=== PATIENT | female | born 1965 | race Caucasian/White ===

== ENCOUNTER 2024-07-10 08:06 | Day surgery (SDC) | payer BC, SELFPAY ==
[2024-07-10] VITALS (20 sets, daily range): BP systolic 95–128; BP diastolic 47–76; PULSE 52–73; RESP 11–18; TEMP 35.9–36.6; O2SAT 81–97; BMI 34.4
--- NOTE | 2024-07-10 07:32 | W.PM.DSUDISC ---
Date of service: 07/10/24 Time of Service: 11:22 Discharge Plan Disposition Patient Disposition: Home Condition: Good Discharge Details Reason For Visit: Left fifth metacarpal fracture Attending Provider: Luis Crawford Primary Care Provider: Luli Jenkins Home Meds and New Rx's Prescriptions: New acetaminophen 500 mg tablet 500 mg PO Q6H PRN (Reason: pain) Qty: 60 2RF hydrocodone-acetaminophen 5-325 mg tablet 1 tab PO Q6H PRN (Reason: severe pain) Qty: 5 0RF Rx Instructions: Take one tablet up to every 6 hours as needed for severe postoperative pain ibuprofen 600 mg tablet 600 mg PO TID PRN (Reason: pain) Qty: 60 0RF Continued levothyroxine [Synthroid] 125 mcg tablet 125 mcg PO DAILY rosuvastatin 10 mg tablet 10 mg PO DAILY multivitamin Tablet 1 tab PO DAILY Discontinued ibuprofen [IBU] 800 mg tablet 800 mg PO ONCE Discharge Instructions Additional Instructions: Finger Fracture Fixation Discharge Instructions Activity: You should keep the hand/wrist elevated as much as possible for the first few days. You may use the other fingers as tolerated but avoid trying to do too much too soon. You may perform light activities with the splint in place. Dressing/Cast: Your splint should stay in place at all times. Do NOT get it wet. You may loosen the IZABEL wrap if you feel it is too tight and then rewrap more loosely. Medications: - You should take Tylenol and Ibuprofen for baseline pain control. - You have been prescribed a stronger pain medication, Hydrocodone, for breakthrough pain. - You may apply ice over the wrist, just double bag so it doesn't get wet. Follow-up: 10-14 days Referrals: Luis Crawford MD [ [facility] STAFF PHYSICIAN] - Equipment/Supplies: Splint Activity:: Elevate Remove Dressings/Wound Care:: Do Not Remove Shower/Bathe:: Cover Diet:: As Tolerated Discharge Orders Discharge Orders: Discharge Order (Routine); Ordered 07/10/24 Ordered By: Kristin Brown
--- NOTE | 2024-07-10 07:48 | ANES.PREOP_ITS ---
General Info Date of Service Date Performed: 07/10/24 Height: 5 ft 4 in Weight: 91.172 kg Body Mass Index (BMI): 34.4 Surgical Procedure: Operation Date: 07/10/24 11:10 Proposed Procedure Side Surgeon p Closed reduction/perc pinning Left 5th metacarpal Left Luis Crawford MD Meds Allergies and Home Medications Allergies Allergy/AdvReac Type Severity Reaction Status Date / Time Penicillins Allergy Mild RASH Verified 07/10/24 09:29 Home Medication ?Medication ?Instructions ?Recorded levothyroxine 125 mcg tablet 125 mcg PO DAILY 07/05/24 (Synthroid) rosuvastatin 10 mg tablet 10 mg PO DAILY 07/05/24 multivitamin 1 tab PO DAILY 07/09/24 ibuprofen 800 mg tablet (IBU) 800 mg PO ONCE 07/10/24 Current Visit Medications: Current Medications Generic Name Dose Route Start Last Admin Trade Name Freq PRN Reason Stop Dose Admin Acetaminophen 1,000 mg 07/10/24 06:00 Acetaminophen 500 Mg Tab PO 07/10/24 23:59 PREOP ABBE Acetaminophen 650 mg 07/10/24 07:32 Acetaminophen 325 Mg Tab PO 08/09/24 07:31 Q4H PRN PRN Hydrocodone Bitart/Acetaminophen 0 tab 07/10/24 07:32 Hydrocodone 5/Acetaminophen 325 Tab PO 08/09/24 07:31 Q3H PRN PRN Pain Celecoxib 400 mg 07/10/24 06:00 Celecoxib 200 Mg Cap PO 07/10/24 23:59 PREOP ABBE Ringer's Solution 1,000 mls @ 80 mls/hr 07/10/24 06:00 IV 07/10/24 23:59 [facility] Cefazolin Sodium/Dextrose 2 gm in 50 mls @ 100 mls/hr 07/10/24 06:00 Ancef Duplex IVPB 07/10/24 23:59 PREOP [facility] IV Miscellaneous Supplies 1 each 07/10/24 06:00 Iv Access IV 07/10/24 23:59 DIRECTED ABBE Sodium Chloride 0 ml 07/10/24 06:00 Normal Saline Flush 10 Ml Syr IV 07/10/24 23:59 PRN PRN Sodium Chloride 0 ml 07/10/24 06:00 Normal Saline 10 Ml Vial IJ 07/10/24 23:59 DIRECTED PRN Sterile Water 0 ml 07/10/24 06:00 Water,Injection,Sterile 10 Ml Vial IJ 07/10/24 23:59 DIRECTED PRN PFSH Active Problems Active Problems: Problem Status Onset Code Fracture of fifth metacarpal bone of left hand Acute 07/03/24 S62.307A Medical History Medical History Hx of breast cancer (R) 10 years ago History of high cholesterol History of hypothyroidism Surgical History Surgical History Hx of parathyroidectomy Hx of cholecystectomy H/O partial thyroidectomy Hx of hysterectomy partial-still have ovaries Tobacco Smoking/Tobacco Use Status: Never Alcohol Alcohol Intake: current Alcohol intake frequency: a few times a week Alcohol type: beer and wine Substance Use Substance use: Rarely Substance use type: marijuana Vital Signs and Lab Results Lab Results Blood Type / Crossmatch: No Data to Display Complete Blood Count: No Data to Display Complete Metabolic Panel: No Data to Display Liver Function Panel: 2 No Data to Display Coagulation Panel: No Data to Display Cardiac Panel: No Data to Display Arterial Blood Gas: No Data to Display Venous Blood Gas: No Data to Display Pancreas Panel: No Data to Display Thyroid Panel: No Data to Display Infectious Disease: No Data to Display Blood Cultures: No Data to Display Toxicology Panel: No Data to Display Anesthesia Assessment and Plan Anesthesia History Personal History: No History of Anesthesia Complications Family History: No Family History of Anesthesia Complications Exercise Tolerance Exercise Tolerance: Metabolic Equivalents>4 Pertinent Negatives Pertinent Negatives: No Symptoms of GERD, No Major Cardiovascular Symptoms or Complaints, No Major Pulmonary Symptoms or Complaints and No History of CVA/TIA Cardiac & Pulmonary Exam Cardiac Exam: Normal S1/S2 Heart Sounds Pulmonary Exam: Clear Bilateral Breath Sounds Implantable Cardiac Device Does patient have a Pacemaker or an ICD?: No Airway Exam Known Difficult Airway: No Mallampati Class: 3 Mouth Opening: Normal (> 3cm) Thyromental Distance: Greater than 3 cm Neck Range of Motion: Full ROM Neck Circumference: Normal Teeth Condition: Normal Dentition (prominent incisors) ASA Classification ASA Score: ASA 2 Emergency Case?: No NPO Status NPO Status: NPO Clears >2 hours, Solids >8 hours Anesthesia Plan Resuscitation Status: Full Code Anesthesia Technique: General Anesthesia Airway Planned: Natural Airway Monitors Used: Standard Monitors Preoperative Comments:: 58 yo female for fracture of fifth met left hand Sig PMHx: hypothyroid (on replacement), breast CA, never smoker, occ EtOH.
[2024-07-10] MEDS: Acetaminophen 500 MG TAB 1000 MG PO (09:51)
[2024-07-10] MEDS: Celecoxib 200 MG CAP 400 MG PO (09:51)
[2024-07-10] MEDS: ceFAZolin 2 GM/50 ML BAG IVPB (10:47)
[2024-07-10] MEDS: Bupivacaine 0.5% Pres-Free 30 ML VIAL (11:00)
--- NOTE | 2024-07-10 11:56 | DI.RAD_ITS ---
Exam(s) XR HAND LT LIMITED EXAM: XR HAND LT LIMITED CLINICAL HISTORY: Fracture of fifth metacarpal bone of left hand TECHNIQUE: 2D and realtime digital imaging was performed. CONTRAST MATERIAL: Refer to procedure report. COMPARISON: CT CT UPPER EXTREMITY LT WO from 07/10/2024 FINDINGS: Fluoroscopy was provided for Dr. Crawford during the performance of a reduction and fixation of the 5th metatarsal fracture. Please refer to the procedure report for complete details. Ka,r=2.76 mGy IMPRESSION: RADIATION DOSE DELIVERED: 0.0 0.0 0
[2024-07-10] MEDS: Normal Saline 10 ML VIAL IJ (11:57)
[2024-07-10] MEDS: fentaNYL 100 MCG/2 ML VIAL IVP (11:57)
[2024-07-10] MEDS: HYDROcodone 5/Acetaminophen 325 TAB PO (12:43)
--- NOTE | 2024-07-10 13:00 | W.ANESPOSTOP ---
Postoperative Evaluation Date, Time and Location Date Performed: 07/10/24 Time Performed: 13:01 Patient Location: Day Surgery Unit Vital Signs Most Recent Imported Vital Signs: Most Recent Vital Signs Temp Pulse Resp BP Pulse Ox 36.1 C L 54 L 16 100/56 L 94 07/10/24 12:49 07/10/24 12:49 07/10/24 12:49 07/10/24 12:49 07/10/24 12:49 Pain Score Most Recent Pain Score: Most Recent Pain Score Pain Level 6 07/10/24 12:49 Assessment Mental Status: Awake (Alert & Oriented to Patient Baseline) Airway and Respiratory Function: Patent airway with normal (patient baseline) respiratory exam Cardiovascular Function: Hemodynamically Stable Hydration Status: Adequately Hydrated Nausea & Vomiting: No Nausea or Vomiting Pain: Pain is Moderate or Severe Postoperative Pain Management: Pain being addressed with medication Peripheral Nerve Block: Patient did not receive a nerve block
--- NOTE | 2024-07-10 17:13 | ROE_ITS ---
Date of service: 07/10/24 Time of Service: 11:15 Operative Note Operative Note DATE OF PROCEDURE: 07/10/24 PRE-OP DIAGNOSIS: Fifth carpometacarpal fracture dislocation, left hand POST-OP DIAGNOSIS: same PROCEDURE: Close reduction and percutaneous pinning of fifth carpometacarpal fracture dislocation, left hand SURGEON: Luis Crawford ANESTHESIA TYPE: General:No Airway Refer to Anesthesia Record ESTIMATED BLOOD LOSS: 1 TOURNIQUET TIME: 0 COMPLICATIONS: None Patient was transported to: PACU Patient's condition: stable Indications: Sweetie is a 58-year-old active female who suffered a fall while walking her dogs which resulted in a displaced fracture dislocation of the fifth carpometacarpal joint. I was called in consultation where I saw her in clinic and then recommended surgical fixation. I discussed the tentacle details of the case today. I reviewed the risk to include bleeding, infection, pain, stiffness, malunion, nonunion, instability, worsening arthritis, need for repeat procedures. Despite these risk, she elected to proceed. Findings: There is a highly unstable fracture dislocation about the fifth carpometacarpal joint. The small fracture fragment left behind articulating with the fourth metacarpal base and the hamate was unstable as well requiring stabilization pend ing prior to pinning the fifth metacarpal shaft into position. Procedure Description: Mara was greeted in the preoperative holding area. Her identity was confirmed and the correct site was identified and marked. The consent was reviewed the patient and signed. She was taken back to the operating room. She is placed in supine position. The left hand was placed onto a hand table. The left hand was prepped with ChloraPrep and draped in a standard fashion. Prophylactic antibiotics in the form of cefazolin were given. A timeout was performed for safe surgery. The left hand was evaluated with fluoroscopic evaluation which showed that the fifth metacarpal was highly unstable. Interestingly, as I tried to close reduce the fifth metacarpal it would actually displace the base fragment which was attached to the fourth metacarpal and the hamate, suggested some ligamentous injury to that remnant fracture fragment. Therefore, I first placed a single 0.062 inch K wire into the base fragment. I then reduced the fifth metacarpal onto the hamate. Utilizing this other K wire in the base fracture fragment of the fifth metacarpal I was able to joystick this back into position. With this being held in position and then placed a K wire across the fifth metacarpal into the fourth metacarpal at the very base grabbing the fracture fragment as well. This was awfully close to going into the hamate but provided adequate reduction of the fracture fragments. I was able to compress the fifth metacarpal onto the fracture base and there was good reduction against the hamate. A second K wire was then placed between the fifth metacarpal and the fourth metacarpal in a slightly more distal position. The joystick K wire was removed. The K wires were bent at the level skin and then covered with a Su ball. Xeroform and 4 x 4 gauze was placed around the pins. Webril was wrapped around the hand and a ulnar gutter splint was applied. And then the case all counts were correct. She is transferred back to the PACU in stable condition.
== END 2024-07-10 13:24 | disposition home or self-care (01) ==
LOC: SUR 08:07
PROVIDERS: PCP Naturopath; Visit Provider Student in an Organized Health Care Education/Training Program
PROC: (CPT 26727; principal; 2024-07-10 11:00)
DX: S62.397A Other fracture of fifth metacarpal bone, left hand, initial encounter for closed fracture (principal); W19.XXXA Unspecified fall, initial encounter; E03.9 Hypothyroidism, unspecified; E78.5 Hyperlipidemia, unspecified; Z85.3 Personal history of malignant neoplasm of breast
CPT/HCPCS: 26608; 76000; 73120; J0665; J0690; J1100; J2250; J2405; J2704; J3010

== ENCOUNTER 2024-07-23 15:59 | Outpatient (CLI) | payer BC, SELFPAY ==
--- NOTE | 2024-07-23 13:30 | DI.RAD_ITS ---
Exam(s) XR HAND LT COMPLETE EXAM: XR HAND LT COMPLETE CLINICAL HISTORY: CRPP fx hand. TECHNIQUE: 2D digital imaging was performed. Three views. COMPARISON: CR XR HAND LT LIMITED from 07/10/2024 FINDINGS: BONES: Pins are again noted through the bases of the 4th and 5th metacarpals for fracture fixation. The alignment is unchanged. No bony destructive lesion is seen. JOINTS: No dislocation present. SOFT TISSUE: Normal. IMPRESSION: Stable fracture alignment. DATA REPOSITORY: RADIATION DOSE DELIVERED:
== END 2024-07-23 16:00 | disposition home or self-care (01) ==
LOC: DIORS 15:59
PROVIDERS: PCP Naturopath; Visit Provider Physician Assistant
DX: S62.397D Other fracture of fifth metacarpal bone, left hand, subsequent encounter for fracture with routine healing (principal); X58.XXXD Exposure to other specified factors, subsequent encounter
CPT/HCPCS: 73130

== ENCOUNTER 2024-08-30 15:39 | Outpatient (CLI) | payer BC, SELFPAY ==
--- NOTE | 2024-08-30 14:15 | DI.RAD_ITS ---
Exam(s) XR HAND LT COMPLETE EXAM: XR HAND LT COMPLETE CLINICAL HISTORY: F/U FRACTURE. TECHNIQUE: 2D digital imaging was performed. Three views. COMPARISON: No exams were available for comparison FINDINGS: BONES: Previously noted pins through the 4th and 5th metacarpals have been removed. There has been c ontinued. Of the fracture at the base of the 5th metacarpal. No acute fracture is present. No bony destructive lesion is seen. JOINTS: No dislocation present. SOFT TISSUE: Normal. IMPRESSION: Continued healing 5th metacarpal base fracture. Removal of percutaneous pins. DATA REPOSITORY: RADIATION DOSE DELIVERED:
== END 2024-08-30 15:40 | disposition home or self-care (01) ==
LOC: DIORS 15:39
PROVIDERS: PCP Naturopath; Visit Provider Physician Assistant
DX: S62.397D Other fracture of fifth metacarpal bone, left hand, subsequent encounter for fracture with routine healing (principal); X58.XXXD Exposure to other specified factors, subsequent encounter
CPT/HCPCS: 73130